=== PATIENT | male | born 1995 | race African-American/Black ===

== ENCOUNTER 2019-08-23 18:26 | Emergency (ER) | payer SELFPAY ==
[2019-08-23] MEDS ORDERED: Lidocaine 1% (PF) 30 ML VIAL ONE (19:38)
[2019-08-23] MEDS ORDERED: cefTRIAXone\\ROCEPHIN 250 MG VIAL ONE (19:38)
[2019-08-23] MEDS ORDERED: Azithromycin 250 MG TAB ONE (19:38)
== END 2019-08-23 20:09 | disposition home or self-care (01) ==
LOC: ERS 18:26
DX: Z20.2 Contact with and (suspected) exposure to infections with a predominantly sexual mode of transmission (principal)
CPT/HCPCS: 96372; 99283; J0696; J2001

== ENCOUNTER 2021-08-04 08:31 | Emergency (ER) | payer SELFPAY ==
[2021-08-04 17:44] LABS: SARS-CoV-2 PCR by NAA Not Detected (NotDetected)
== END 2021-08-04 10:10 | disposition home or self-care (01) ==
LOC: ERS 08:31
DX: J02.9 Acute pharyngitis, unspecified (principal); Z20.822 Contact with and (suspected) exposure to COVID-19
CPT/HCPCS: 99283; U0003; U0005

== ENCOUNTER 2021-09-15 15:42 | Emergency (ER) | payer SELFPAY ==
[2021-09-15] MEDS ORDERED: Azithromycin 250 MG TAB ONE (16:50)
[2021-09-15] MEDS ORDERED: cefTRIAXone\\ROCEPHIN 500 MG VIAL ONE (16:50)
[2021-09-15] MEDS ORDERED: Lidocaine 1% PF 5 ML VIAL ONE (16:51)
[2021-09-16 19:49] LABS: Chlam.trachomatis by PCR,Urine Not Detected (NotDetected)
== END 2021-09-15 17:24 | disposition home or self-care (01) ==
LOC: ERS 15:42
DX: A64 Unspecified sexually transmitted disease (principal)
CPT/HCPCS: 87491; 87591; 96372; 99283; J0696